=== PATIENT | male | born 1985 | race Caucasian/White ===

== ENCOUNTER 2022-09-17 20:57 | Emergency (ER) | payer OTHER ==
[~2022-09-17] VITALS: Ht 165.1 cm; Wt 67.0 kg
[2022-09-18 00:38] VITALS: BP 106/68
== END 2022-09-18 00:39 | disposition home or self-care (01) ==
LOC: ED 20:57
DX: K52.9 Noninfective gastroenteritis and colitis, unspecified (principal)
CPT/HCPCS: 36415; 80053; 81003; 83690; 83735; 85025; 96361; 96374; 99284 25; A9270; J2405; J7030

== ENCOUNTER 2022-12-06 14:17 | Emergency (ER) | payer OTHER ==
[~2022-12-06] VITALS: Ht 165.1 cm; Wt 67.4 kg
[2022-12-06 16:44] LABS: BILIRUBIN, URINE NEGATIVE (negative); BLOOD/HGB, URINE NEGATIVE (Negative); KETONE, URINE NEGATIVE (Negative); LEUK ESTERASE, URINE NEGATIVE (negative); NITRITE, URINE NEGATIVE (negative)
[2022-12-06] MEDS ORDERED: DOXYCYCLINE HY100 MG PO (17:59)
[2022-12-06 18:19] VITALS: BP 123/89
[2022-12-06 21:12] LABS: N. GONORRRHOEAE BY PCR NOT DETECTED (NOT DETECT)
== END 2022-12-06 18:20 | disposition home or self-care (01) ==
LOC: ED 14:17
PROVIDERS: Internal Medicine
DX: N45.3 Epididymo-orchitis (principal)
CPT/HCPCS: 76870; 81003; 87491; 99284-25

== ENCOUNTER 2023-08-03 08:56 | Emergency (ER) | payer OTHER ==
[~2023-08-03] VITALS: Ht 165.1 cm; Wt 66.2 kg
[~2023-08-03 08:56] MED LIST: DOCUSATE SODIU100 MG PO; DOXYCYCLINE HY100 MG PO; FLUOXETINE HCL20 MG PO; ONDANSETRON ODT4 MG PO; OXYCODONE HCL10 MG PO
[2023-08-03 10:04] VITALS: BP 114/78
== END 2023-08-03 10:05 | disposition home or self-care (01) ==
LOC: ED 08:56
DX: S69.92XA Unspecified injury of left wrist, hand and finger(s), initial encounter (principal); W22.8XXA Striking against or struck by other objects, initial encounter; Z79.899 Other long term (current) drug therapy
CPT/HCPCS: 73130